=== PATIENT | male | born 1990 | race Caucasian/White ===

== ENCOUNTER 2020-04-16 13:00 | Emergency (ER) | payer OTHER ==
[~2020-04-16] VITALS: Ht 175.3 cm; Wt 67.6 kg
[2020-04-16 13:24] VITALS: BP 112/77; Ht 175.3 cm; Wt 67.6 kg
== END 2020-04-16 16:56 | disposition home or self-care (01) ==
LOC: ED 13:00
DX: R21 Rash and other nonspecific skin eruption (principal); F17.210 Nicotine dependence, cigarettes, uncomplicated; Z98.890 Other specified postprocedural states
CPT/HCPCS: 99406